=== PATIENT | female | born 1995 | race African-American/Black ===

== ENCOUNTER 2017-10-28 10:50 | Emergency (ER) | payer BC ==
[~2017-10-28] VITALS: Ht 175.3 cm; Wt 98.5 kg
[2017-10-28 11:48] LABS: EOSINOPHIL (%) 0.8 % (0-5); EOSINOPHIL COUNT 0.1 K/uL (0-0.3); HEMATOCRIT 36.3 % (36.0-46.0); IMMATURE GRANULOCYTE (%) 0.5 % (0.0-0.7); IMMATURE GRANULOCYTE COUNT 0.1 K/uL; INSTRUMENT ABS NEUTROPHIL CT 7.7 K/uL; LYMPHOCYTE COUNT 2.1 K/uL (1.0-2.8); MCHC 32.5 G/DL (30.0-36.0); MONOCYTE (%) 6.7 % (3-12); MONOCYTE COUNT 0.7 K/uL (0-0.8); NEUTROPHIL (%) 71.7 % (45-76); NEUTROPHIL COUNT 7.7 K/uL (1.8-6.4); PLATELET COUNT 356 K/uL (156-360); RBC DIS.WIDTH-CV 14.5 % (11.8-14.6); RBC DIS.WIDTH-SD 45.9 % (39-53); RED BLOOD COUNT 4.22 M/uL (3.80-5.20); WHITE BLOOD COUNT 10.7 K/uL (4.1-10.2)
[2017-10-28 11:57] LABS: CHLORIDE 105 mEq/L (99-109); SODIUM 136 mEq/L (136-147)
[2017-10-28 11:58] LABS: GLUCOSE 82 mg/dL (70-99)
[2017-10-28 12:00] LABS: ANION GAP 6 MEQ/L (2-14)
[2017-10-28 12:02] LABS: GFR ESTIMATE (CALCULATED) > 59 mL/min/
[2017-10-28 12:03] LABS: UREA NITROGEN (BUN) 8 mg/dL (9-23)
[2017-10-28 12:31] LABS: QUANTITATIVE HCG 62368.1 MIU/ML
[2017-10-28] MEDS ORDERED: ZOFRAN4 MG PO (14:13)
[2017-10-28 14:28] VITALS: BP 138/92
== END 2017-10-28 14:29 | disposition home or self-care (01) ==
LOC: EME 10:50
PROVIDERS: Emergency Medicine
DX: O26.891 Other specified pregnancy related conditions, first trimester (principal); R55 Syncope and collapse; Z3A.08 8 weeks gestation of pregnancy; Z87.891 Personal history of nicotine dependence
CPT/HCPCS: 76801; 80048; 84702; 85025; 99281; 99284

== ENCOUNTER 2017-11-05 17:57 | Emergency (ER) | payer OTHER, BC ==
[~2017-11-05] VITALS: Ht 175.3 cm; Wt 97.6 kg
[~2017-11-05 17:57] MED LIST: ZOFRAN4 MG PO
[2017-11-05 18:55] LABS: HEMATOCRIT 33.4 % (36.0-46.0); MCH 28.4 PG (29.0-34.0); MCHC 33.5 G/DL (30.0-36.0); MCV 84.8 FL (83-99); MEAN PLAT.VOLUME 9.2 uM^3 (9.5-12.4); PLATELET COUNT 342 K/uL (156-360); RED BLOOD COUNT 3.94 M/uL (3.80-5.20); WHITE BLOOD COUNT 11.7 K/uL (4.1-10.2)
[2017-11-05 19:03] LABS: CHLORIDE 107 mEq/L (99-109); POTASSIUM 3.8 mEq/L (3.7-5.4)
[2017-11-05 19:04] LABS: SODIUM 137 mEq/L (136-147)
[2017-11-05 19:06] LABS: GLUCOSE 83 mg/dL (70-99)
[2017-11-05 19:07] LABS: ANION GAP 9 MEQ/L (2-14)
[2017-11-05 19:08] LABS: TOTAL BILIRUBIN 0.2 mg/dL (0.0-1.0)
[2017-11-05 19:09] LABS: ALKALINE PHOSPHATASE 66 IU/L (3-129); SERUM ETHYL ALCOHOL < 10 mg/dL
[2017-11-05 19:10] LABS: GFR ESTIMATE (CALCULATED) > 59 mL/min/
[2017-11-05 19:11] LABS: UREA NITROGEN (BUN) 9 mg/dL (9-23)
[2017-11-05 20:55] LABS: THC CANNABINOIDS PRESUMPTIVE POSITIVE (50 ng/mL)
[2017-11-05 20:56] LABS: ADD MEDTOX COMMENT Y; AMPHETAMINE NEGATIVE (500 ng/mL); BARBITURATES NEGATIVE (200 ng/mL); BENZODIAZEPINES NEGATIVE (150 ng/mL); COCAINE NEGATIVE (150 ng/mL); INTERNAL CONTROLS VALID? YES; METHADONE NEGATIVE (200 ng/mL); METHAMPHETAMINE NEGATIVE (500 ng/mL); OPIATES (MORPHINE) PRESUMPTIVE POSITIVE (100 ng/mL); OXYCODONE NEGATIVE (100 ng/mL); PHENCYCLIDINE NEGATIVE (25 ng/mL); PROPOXYPHENE NEGATIVE (300 ng/mL); TRICYCLIC ANTIDEPRESSANTS NEGATIVE (300 ng/mL)
[2017-11-05 21:01] VITALS: BP 134/85
== END 2017-11-05 21:02 | disposition home or self-care (01) ==
LOC: EME 17:57
PROVIDERS: Emergency Medicine
DX: O9A.211 Injury, poisoning and certain other consequences of external causes complicating pregnancy, first trimester (principal); S06.0X0A Concussion without loss of consciousness, initial encounter; S00.81XA Abrasion of other part of head, initial encounter; V49.50XA Passenger injured in collision with unspecified motor vehicles in traffic accident, initial encounter; Y92.410 Unspecified street and highway as the place of occurrence of the external cause; M25.561 Pain in right knee; M25.562 Pain in left knee; M54.2 Cervicalgia; R10.10 Upper abdominal pain, unspecified; R07.9 Chest pain, unspecified; O26.891 Other specified pregnancy related conditions, first trimester; J45.909 Unspecified asthma, uncomplicated; Z3A.10 10 weeks gestation of pregnancy
CPT/HCPCS: 70450; 70486; 71260; 72125; 73590; 74177; 80053; 84999; 85027; 86850; 86900; 86901; 99281; 99285; G0480; J2270; J2405

== ENCOUNTER 2018-06-03 06:57 | Outpatient (CLI) | payer BC, OTHER ==
[2018-06-03 07:15] VITALS: BP 117/67
[2018-06-03 07:48] VITALS: BP 114/71
== END 2018-06-03 11:37 | disposition home or self-care (01) ==
LOC: LDRP-OP 06:57 → 2WEST 06:58 → LDRP-OP 07-03 05:27
DX: O47.1 False labor at or after 37 completed weeks of gestation (principal); Z3A.40 40 weeks gestation of pregnancy; O99.513 Diseases of the respiratory system complicating pregnancy, third trimester; J45.909 Unspecified asthma, uncomplicated
CPT/HCPCS: 59025; G0378

== ENCOUNTER 2018-06-05 14:50 | Inpatient (IN) | payer BC, OTHER ==
[2018-06-05] VITALS (17 sets, daily range): BP systolic 90–131; BP diastolic 58–79
[~2018-06-05] VITALS: Ht 175.3 cm; Wt 114.5 kg
[2018-06-05] MEDS ORDERED: PRENATAL TABLE1 EAC3 PO (15:30)
[2018-06-05 15:32] LABS: BASOPHIL (%) 0.4 % (0-1); BASOPHIL COUNT 0.1 K/uL (0-0.1); EOSINOPHIL (%) 0.7 % (0-5); EOSINOPHIL COUNT 0.1 K/uL (0-0.3); HEMATOCRIT 33.7 % (36.0-46.0); HEMOGLOBIN 11.5 G/DL (11.9-15.5); IMMATURE GRANULOCYTE (%) 0.6 % (0.0-0.7); LYMPHOCYTE (%) 14.4 % (15-42); LYMPHOCYTE COUNT 1.9 K/uL (1.0-2.8); MCHC 34.1 G/DL (30.0-36.0); MCV 84.9 FL (83-99); MONOCYTE (%) 7.2 % (3-12); NEUTROPHIL (%) 76.7 % (45-76); NEUTROPHIL COUNT 10.2 K/uL (1.8-6.4); PLATELET COUNT 330 K/uL (156-360); RBC DIS.WIDTH-CV 13.4 % (11.8-14.6); RBC DIS.WIDTH-SD 41.6 % (39-53); RED BLOOD COUNT 3.97 M/uL (3.80-5.20); WHITE BLOOD COUNT 13.3 K/uL (4.1-10.2)
[2018-06-05 16:44] LABS: AMPHETAMINE NEGATIVE (500 ng/mL); BARBITURATES NEGATIVE (200 ng/mL); BENZODIAZEPINES NEGATIVE (150 ng/mL); BUPRENORPHINE NEGATIVE (10 ng/mL); COCAINE NEGATIVE (150 ng/mL); METHADONE NEGATIVE (200 ng/mL); METHAMPHETAMINE NEGATIVE (500 ng/mL); OPIATES (MORPHINE) NEGATIVE (100 ng/mL); OXYCODONE NEGATIVE (100 ng/mL); PHENCYCLIDINE NEGATIVE (25 ng/mL); PROPOXYPHENE NEGATIVE (300 ng/mL); THC CANNABINOIDS NEGATIVE (50 ng/mL); TRICYCLIC ANTIDEPRESSANTS NEGATIVE (300 ng/mL)
[2018-06-06] VITALS (12 sets, daily range): BP systolic 92–188; BP diastolic 52–134
[2018-06-06] MEDS ORDERED: IBUPROFEN800 MG PO (02:09)
[2018-06-08 07:56] VITALS: BP 119/68
== END 2018-06-08 13:04 | disposition home or self-care (01) | DRG 775 ==
LOC: LDRP-OP 14:50 → 2WEST 14:51 → LDRP-OP 07-03 11:55
PROVIDERS: Advanced Practice Midwife
PROC: 00HU33Z Insertion of Infusion Device into Spinal Canal, Percutaneous Approach (ICD-10-PCS; principal; 2018-06-05)
PROC: 3E0R3BZ Introduction of Anesthetic Agent into Spinal Canal, Percutaneous Approach (ICD-10-PCS; principal; 2018-06-05)
PROC: 0UQGXZZ Repair Vagina, External Approach (ICD-10-PCS; 2018-06-06)
PROC: 10E0XZZ Delivery of Products of Conception, External Approach (ICD-10-PCS; 2018-06-06)
DX: O71.4 Obstetric high vaginal laceration alone (principal); O99.824 Streptococcus B carrier state complicating childbirth; O99.52 Diseases of the respiratory system complicating childbirth; J45.909 Unspecified asthma, uncomplicated; Z3A.40 40 weeks gestation of pregnancy; Z37.0 Single live birth
CPT/HCPCS: 85025; C1755; G0378; J2540; J3010; J7120